=== PATIENT | female | born 1935 | race Caucasian/White ===

== ENCOUNTER 2018-11-09 13:28 | Emergency (ER) | payer OTHER ==
[2018-11-09 13:56] VITALS: BMI 27.4
--- NOTE | 2018-11-09 14:32 | PDOC ---
History of Present Illness - General Chief Complaint: Injury Stated Complaint: HEAD/LT.SHOULDER PAIN /FALL Time Seen by Provider: 11/09/18 14:00 - History of Present Illness Initial Comments: 11/09/18 14:37 83y/o F with hx of hld, htn,anxiety and depression presents to the ED 1 hour after a fall in her bathtub. 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 She is not able to remember if she there was any preceding dizziness/ lightheadedness prior to her fall. She hit the back of her head and left shoulder but denies any loss of consciousness. She was able to ambulate after the fall and was brought in by her family. She describes the pain as 10/10 pain in the back of her head and neck and shooting down her left arm. She denies any pain in other areas, or sensations of numbness or tingling in her left arm, headache, dizziness, lightheadedness or vertigo. 11/09/18 17:35 Past History - Past Medical History Allergies/Adverse Reactions: Allergies Allergy/AdvReac Type Severity Reaction Status Date / Time No Known Allergies Allergy Verified 11/09/18 13:37 Home Medications: Ambulatory Orders Atenolol/Chlorthalidone [Atenolol-Chlorthalidone 50-25] 1 each PO DAILY Atorvastatin Ca [Lipitor] 40 mg PO HS 11/09/18 Cephalexin [Keflex] 500 mg PO DAILY 11/09/18 Omeprazole 20 mg PO DAILY 11/09/18 Sertraline HCl 50 mg PO DAILY 11/09/18 Sulfamethoxazole/Trimethoprim [Bactrim Ds Tablet] 1 each PO DAILY 11/09/18 COPD: No HTN: Yes Hypercholesterolemia: Yes - Surgical History Abdominal Surgery: (hernia) - Suicide/Smoking/Psychosocial Hx Smoking History: Never smoked Information on smoking cessation initiated: No Hx Alcohol Use: No Drug/Substance Use Hx: No Review of Systems - Review of Systems All Other Systems: Reviewed and Negative *Physical Exam - Vital Signs Last Vital Signs Temp Pulse Resp BP Pulse Ox 98.1 F 63 18 105/50 L 100 11/09/18 13:34 11/09/18 13:34 11/09/18 13:34 11/09/18 13:34 11/09/18 13:34 - Physical Exam General Appearance: Yes: Appropriately Dressed, Apparent Distress HEENT: positive: EOMI, Normal Voice. negative: Scleral Icterus (R), Scleral Icterus (L) Neck: positive: Tender, Trachea midline. negative: Decreased range of motion, Rigidity Respiratory/Chest: positive: Lungs Clear, Normal Breath Sounds. negative: Chest Tender, Decreased Breath Sounds, Rales, Wheezing Cardiovascular: positive: Regular Rhythm, Regular Rate, S1, S2. negative: Edema , JVD, Murmur Vascular Pulses: Dorsalis-Pedis (R): 2+, Doralis-Pedis (L): 2+ Comments:: 2+ radial pulses bilaterally Gastrointestinal/Abdominal: positive: Normal Bowel Sounds, Soft. negative: Pulsatile Mass, Increased Bowel Sounds, Distended, Guarding, Rebound Musculoskeletal: positive: Normal Inspection, Vertebral Tenderness, Other (c- spine vertebral tenderness.). negative: CVA Tenderness Extremity: positive: Normal Capillary Refill, Normal Inspection, Other ( tenderness to palpation at left claviculo-humeral joint and left elbow. pain on abduction & adduction. Pain on flexion and extension at left shoulder. No ecchymosis noted. 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 4/5 strength bilaterally lower extremities.) ED Treatment Course - LABORATORY CBC & Chemistry Diagram: 11/09/18 15:37 11/09/18 15:37 Medical Decision Making - Medical Decision Making 11/09/18 17:42 83y/o F with hx of hld, htn,anxiety and depression presents to the ED 1 hour after a fall in her bathtub. Pt. placed in c-collar due to vertebral tenderness at c-spine. CT head, c-spine w/out contrast cbc, cmp, cardiac profile, ekg Tylenol IV 1000mg for pain. Results Ct head & c-spine findings Mild to moderate volume loss, no acute intracranial pathology No gross fracture, subluxation or jumped facets; normal alignment Multilevel degenerative disc disease. markedly enlarged left thyroid lobe with calcification Deviation of trachea to the right due to large thyroid. CXR XR (shoulder, elbow) Pt. pain is improved. able to ambulate to bathroom. Informed of findings on imaging including enlarged thyroid. Instructed to follow up with pcp within 3 days *DC/Admit/Observation/Transfer Diagnosis at time of Disposition: Fall Qualifiers: Encounter type: initial encounter Qualified Code(s): W19.XXXA - Unspecified fall, initial encounter - Discharge Dispostion Condition at time of disposition: Stable Decision to Admit order: No - Referrals - Patient Instructions Printed Discharge Instructions: How to Prevent Falls Additional Instructions: Rest, ice, elevate area. Apply ice to the area for 10 minutes every 2 hours for the first 2 days after the injury to reduce swelling.If you have any worsening of symptoms, including severe pain/swelling/redness/numbness/changes in sensation/weakness/paralysis or any other concerns please return to the Emergency Department immediately. Please follow up with your doctor(s) within the next 3 days, but seek medical care sooner if your symptoms persist or worsen. Please call as soon as possible for an appointment. If you cannot follow up with your doctor please return to the Emergency Department for any urgent issues. You were given a copy of the results from any tests performed today in the Emergency Department which have results available. Show these to your doctor(s). Some of the tests we sent may not have results yet so please call or have your doctor call the Emergency Department to follow up on all results. Please continue taking your home medications as directed. Do not use alcohol when taking any medication (especially antibiotics, tylenol or other pain medication) unless you check with the doctor or pharmacist. -You can take 500mg of tylenol every 6 hrs for pain do not exceed 3000mg in 24 hrs. -You have been given a copy of your test results. Your CT showed an enlarged thyroid follow up with your doctor - Post Discharge Activity
[2018-11-09] MEDS ORDERED: ACETAMINOPHEN 1000 MG/100 ML VIAL (NON FORMULARY) IVPB ONE (14:58)
[2018-11-09] MEDS ORDERED: ACETAMINOPHEN INJECTION 100 ML IVPB ONE (15:14)
[2018-11-09 15:51] LABS: BASO % 0.6 % (0-2.0); EOS % 0.4 % (0-4.5); HEMATOCRIT 34.8 % (32.4-45.2); LYMPH % 22.1 % (8-40); MCH 30.8 pg (25.7-33.7); MCHC 34.4 g/dl (32.0-36.0); MEAN CELL VOLUME 89.4 fl (80-96); MEAN PLT VOLUME 9.2 fl (7.5-11.1); MONO % 9.8 % (3.8-10.2); NEUT % 67.1 % (42.8-82.8); PLATELET COUNT 199 K/MM3 (134-434); RDW 14.6 % (11.6-15.6); WHITE BLOOD COUNT 6.1 K/mm3 (4.0-10.0)
[2018-11-09 16:20] LABS: ALBUMIN 3.8 g/dl (3.4-5.0); ALK PHOS 114 U/L (45-117); ANION GAP 11 MMOL/L (8-16); BILIRUBIN,TOTAL 0.8 mg/dL (0.2-1); BLOOD UREA NITROGEN 17.4 mg/dL (7-18); CALCIUM 9.6 mg/dL (8.5-10.1); CHLORIDE 105 mmol/L (98-107); CO2 24 mmol/L (21-32); CREATININE 1.3 mg/dL (0.55-1.3); GLUCOSE,RANDOM 91 mg/dL (74-106); POTASSIUM 4.2 mmol/L (3.5-5.1); SGOT/AST 15 U/L (15-37); SGPT/ALT 27 U/L (13-61); SODIUM 140 mmol/L (136-145)
--- NOTE | 2018-11-09 16:30 | PDOC ---
Documentation entered by Damaris Polanco SCRIBE, acting as scribe for Mine Newberry MD. Mine Newberry MD: This documentation has been prepared by the scribe, Damaris Polanco SCRIBE, under my direction and personally reviewed by me in its entirety. I confirm that the documentation accurately reflects all work, treatment, procedures, and medical decision making performed by me. Attending Attestation - Resident Resident Name: PamVic Chowdarykaren - [facility] HPI: 11/09/18 15:05 The patient is an 83-year-old female with a past medical history significant for HTN and HLD presents to the emergency department s/p a fall. 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 [place] LOC. The patient sustained an injury to her head and left shoulder and hand, with pain radiating down the arm. Per family at the bedside, the patient was able to bear weight after the fall. Denies fever or chills. Denies numbness or tingling. - Physicial Exam PE: 11/09/18 15:55 GENERAL: Awake, alert, and fully oriented, mildly uncomfortable. HEAD: No signs of trauma LUNGS: Breath sounds equal, clear to auscultation bilaterally. No wheezes, and no crackles HEART: Regular rate and rhythm. ABDOMEN:soft, nontender, nondistended. EXTREMITIES: +diffuse tenderness without deformity of the left upper extremity, range of motion limited by pain. Lower extremity: no ecchymosis, deformity or tenderness. NEUROLOGICAL: Alert, awake, and Oriented x3. Cranial nerves II through XII grossly intact.
[2018-11-09 17:50] VITALS: BP 115/62; PULSE 70; TEMP 98
--- NOTE | 2018-11-10 09:03 | EKG ---
Test Reason : Blood Pressure : / mmHG Vent. Rate : 066 BPM Atrial Rate : 066 BPM P-R Int : 140 ms QRS Dur : 072 ms QT Int : 448 ms P-R-T Axes : 073 038 027 degrees QTc Int : 469 ms NORMAL SINUS RHYTHM NORMAL ECG WHEN COMPARED WITH ECG OF 09-NOV-2018 15:29, PREMATURE ATRIAL COMPLEXES ARE NO LONGER PRESENT Confirmed by ZEE SHAFER MD ([id number]) on 11/10/2018 9:03:19 AM Referred By: Confirmed By:EZE SHAFER MD
== END 2018-11-09 17:40 | disposition home or self-care (01) ==
LOC: JERFT 13:28 → JER 13:28
PROC: 3E033NZ Introduction of Analgesics, Hypnotics, Sedatives into Peripheral Vein, Percutaneous Approach (ICD-10-PCS; principal; 2018-11-09)
DX: M54.2 Cervicalgia (principal); M25.512 Pain in left shoulder; R51 Headache; W18.2XXA Fall in (into) shower or empty bathtub, initial encounter; Y93.E1 Activity, personal bathing and showering; Y92.018 Other place in single-family (private) house as the place of occurrence of the external cause; I10 Essential (primary) hypertension; E78.5 Hyperlipidemia, unspecified; F41.9 Anxiety disorder, unspecified; F32.9 Major depressive disorder, single episode, unspecified
CPT/HCPCS: 36415; 70450-TC; 71045-TC-FY; 72125-TC; 73030-TC-LT-FY; 73070-TC-LT-FY; 80053; 82550; 84484; 85025; 93005; 93010; 96374; 99283-25; J0131